=== PATIENT | male | born 1990 | race Caucasian/White ===

== ENCOUNTER 2022-10-30 13:32 | Emergency (ER) | payer BC, SELFPAY ==
[2022-10-30 13:33] VITALS: BP 161/101; PULSE 99; RESP 18; TEMP 36.6; O2SAT 97; BMI 48.8
--- NOTE | 2022-10-30 13:43 | XR_ITS ---
FINAL REPORT CLINICAL HISTORY: Right ankle pain FINDINGS: RIGHT ANKLE 3 views of the right ankle were obtained. There is no acute fracture or dislocation. The mortise is intact. Visualized joint spaces are normally aligned. There is mild soft tissue swelling about the ankle. IMPRESSION: Mild soft tissue swelling with no acute bony abnormality. Reviewed, Interpreted and Dictated by Ziggy Timmons MD Transcribed by So Haskins Authenticated and [facility]
--- NOTE | 2022-10-30 13:43 | XR_ITS ---
FINAL REPORT CLINICAL HISTORY: Right foot pain FINDINGS: RIGHT FOOT 3 views of the right foot were obtained. There is a minimally displaced fracture of the distal 3rd metatarsal with no intra-articular extension. Visualized joint spaces are normally aligned. Soft tissues are unremarkable. IMPRESSION: Fracture of the distal 3rd metatarsal. Reviewed, Interpreted and Dictated by Ziggy Timmons MD Transcribed by So Haskins Authenticated and [facility]
--- NOTE | 2022-10-30 15:19 | EXP.UTC ---
Discharge Plan Disposition Patient Disposition: Home, Self-Care Condition: Good Referrals Follow up/Referrals: Karl Walters DPM [Physician] - See instructions Patricia Zabala APRN [Nurse Practitioner] - See instructions Ramirez Oviedo DO [Staff Physician] - See instructions Provider,Referral, [Primary Care Provider] - See instructions Activity Restrictions/Add. Instructions Additional Instructions/Restrictions: *RICE, Rest the extremity, Ice 15-20 minutes 3-4 times daily, Compress- wear the patricia wrap as discussed as much as possible to help reduce swelling and pain, Elevate the extremity when at rest *Walking boot is for support and help control swelling, use crutches to help get around. Be sure that is not to tight but not to loose either *Elevate when resting? *Ibuprofen 600-800mg every 6-8 hours as needed for pain an inflammation. If need something more can take Tylenol in between doses of Ibuprofen to help Immediately follow up with your family doctor for new or worsening of symptoms, or no noticeable improvement over the next 3-5 days Call and make appointment with Podiatry or Orthopedics and further instructions per them Clinical Impressions Clinical Impression: Metatarsal bone fracture Qualifiers: Encounter type: initial encounter Metatarsal bone: third Fracture type: closed Fracture alignment: nondisplaced Laterality: right Qualified Code(s): S92.334A - Nondisplaced fracture of third metatarsal bone, right foot, initial encounter for closed fracture Stand Alone Forms Stand Alone Forms: Work/School Release Instructions Patient Instructions: Foot Fracture, DI for Foot Fracture Discharge ED Provider: Maria Alejandra Tillman [facility] General Stated complaint: AO 10/30 right foot Mode of Arrival: Ambulatory Source of Information: Patient Limitations: No Limitations Time Seen by Provider: 10/30/22 15:19 Description of Symptoms (Recalled from Triage Doc. by RN): Patient fell injuring his right foot. HEENT Symptoms (Recalled from RN notes): No Resp Symptoms (Recalled from RN notes): No Skin Symptoms (Recalled from RN notes): No MS Symptoms (Recalled from RN notes): Yes Functional Status (Recalled from RN notes): wnl History of Present Illness Provider Complaint: Patient states that he was bathing his dog yesterday and it started running and he was chasing it wearing a pair of crocs and he slipped and fell State that he has been having pain in the top of foot ever since and hurts when he tries to put weight on it State that today it was swollen and still hurting so he came in to get it checked Related Data Allergies Allergy/AdvReac Type Severity Reaction Status Date / Time No Known Allergies Allergy Verified 10/30/22 14:38 Worker's Comp Is this a Worker's Comp case?: No [facility] Disclaimer: The information contained in this section may have been updated after the patient was seen, as this information can be updated by other users. Social History Smoking Status: Unknown if ever smoked alcohol intake: never current occupational status: employed Travel in the last 8 weeks: None ROS Obtained: Yes All systems reviewed & no additional complaints except as documented and Yes Systems reviewed as appropriate & no additional complaints except as documented Constitutional Constitutional: Reports system reviewed and no additional complaints, except as documented and Reports as per HPI Cardiovascular Cardiovascular: Reports system reviewed and no additional complaints, except as documented and Reports as per HPI Respiratory Respiratory: Reports system reviewed and no additional complaints, except as documented and Reports as per HPI Gastrointestinal Gastrointestingal: Reports system reviewed and no additional complaints, except as documented and as per HPI Musculoskeletal Musculoskeletal: Reports system reviewed and no additional complaints, except as documented and Reports as per HPI Comments: [place]
[2022-10-30 15:54] VITALS: BP 161/101; PULSE 99; RESP 18; TEMP 36.6; O2SAT 97
== END 2022-10-30 15:57 | disposition home or self-care (01) ==
PROVIDERS: Emergency Provider Nurse Practitioner
DX: S92.334A Nondisplaced fracture of third metatarsal bone, right foot, initial encounter for closed fracture (principal); W01.10XA Fall on same level from slipping, tripping and stumbling with subsequent striking against unspecified object, initial encounter
CPT/HCPCS: 73610; 73630; 99204; 99212; G0463